=== PATIENT | female | born 1945 | race Caucasian/White ===

== ENCOUNTER 2018-11-10 11:37 | Inpatient (IN) | payer MEDICARE ==
[~2018-11-10] VITALS: Ht 167.6 cm; Wt 72.3 kg
--- NOTE | 2018-11-10 12:04 | NUR ---
relieving RN for lunch, labor relations manager has drawn blood, pt is resting quietly on gurney,
[2018-11-10 12:10] LABS: BASOPHILS % (AUTO) 0.9 % (0-1); EOSINOPHILS # (AUTO) 0.1 X10'3 (0-0.9); EOSINOPHILS % (AUTO) 2.6 % (0-6); HEMATOCRIT 41.6 % (35.0-45.0); HEMOGLOBIN 14.1 g/dl (12.0-16.0); LYMPHOCYTES # (AUTO) 1.5 X10'3 (1.1-4.8); LYMPHOCYTES % (AUTO) 29.6 % (21-51); MEAN CORPUSCULAR HEMOGLOBIN 31.3 PG (27.0-31.0); MEAN CORPUSCULAR HGB CONC 33.9 g/dL (33.0-36.5); MEAN CORPUSCULAR VOLUME 92.4 FL (78-98); MEAN PLATELET VOLUME 7.6 FL (7.4-10.4); MONOCYTES # (AUTO) 0.6 X10'3 (0-0.9); NEUTROPHILS # (AUTO) 2.9 X10'3 (1.8-7.7); NEUTROPHILS % (AUTO) 55.9 % (42-75); PLATELET COUNT 222 X10'3 (140-440); RED CELL DISTRIBUTION WIDTH 13.9 % (11.5-14.5); WHITE BLOOD COUNT 5.2 X10'3 (4.5-11.0)
--- NOTE | 2018-11-10 12:24 | NUR ---
Dr Vivas at bedside to eval pt, pt is 72 yo female c/o chest pain "burning...tightness" off and on x3 weeks, lasts a few seconds, radiates at times to neck and head, +SOB, no n/v, no diaphoresis, pt referred to ER for abn EKG taken for pre op, pt is calm and cooperative, resp even and unlabored, skin p/w/d
[2018-11-10 12:25] LABS: ALANINE AMINOTRANSFERASE 26 U/L (12-78); ALBUMIN 3.7 G/DL (3.4-5.0); ALKALINE PHOSPHATASE 64 IU/L (46-116); ANION GAP 7 (8-16); ASPARTATE AMINO TRANSFERASE 17 U/L (10-37); BILIRUBIN,TOTAL 0.3 MG/DL (0.1-1.0); BLOOD UREA NITROGEN 10 MG/DL (7-18); BUN/CREATININE RATIO 16.7 (6.6-38.0); CHLORIDE 100 MMOL/L (99-107); GLUCOSE 98 MG/DL (70-104); POTASSIUM 4.2 MMOL/L (3.5-5.1); SODIUM 136 MMOL/L (135-145); TOTAL CARBON DIOXIDE 29.1 MMOL/L (24-32); TOTAL PROTEIN 7.4 G/DL (6.4-8.2); eGFR > 90 ML/MIN
[2018-11-10 12:27] LABS: INR 2.6 INR; PARTIAL THROMBOPLASTIN TIME 38 SECONDS (22-32); PROTHROMBIN TIME 24.8 SECONDS (9.0-12.0)
[2018-11-10] MEDS ORDERED: aspirin 325mg tablet PO ONE (12:35)
--- NOTE | 2018-11-10 12:47 | NUR ---
Dr Ambrose at bedside to evaluate pt
--- NOTE | 2018-11-10 12:48 | NUR ---
report to Isabel OSEI
[2018-11-10] MEDS ORDERED: mag hydrox/Alum hydrox/simeth 30ml oral suspension PO PRN (13:05)
[2018-11-10] MEDS ORDERED: magnesium hydroxide 30ml (MOM) UD suspension PO PRN (13:05)
[2018-11-10] MEDS ORDERED: metoprolol tartrate 1mg/ml inj IV PRN (13:05)
[2018-11-10] MEDS ORDERED: aminophylline 250mg/10ml inj. IV PRN (13:05)
[2018-11-10] MEDS ORDERED: magnesium 2GM in 50ml NS 50 ML IV PRN (13:05)
[2018-11-10] MEDS ORDERED: magnesium 4gm in 100ml NS 100 ML IV PRN (13:05)
[2018-11-10] MEDS ORDERED: potassium Cl 40MEQ/NS 500ml 500 ML IV PRN ×2 (13:05)
[2018-11-10] MEDS ORDERED: HYDROcodone/acetaminophen 5mg/325mg tablet PO PRN (13:05)
[2018-11-10] MEDS ORDERED: acetaminophen 325mg tablet PO PRN (13:05)
[2018-11-10] MEDS ORDERED: regadenoson 0.4mg/5ml syringe IV PRN (13:05)
[2018-11-10] MEDS ORDERED: ondansetron/PF 4mg/2ml inj IV PRN (13:05)
[2018-11-10] MEDS ORDERED: magnesium Cl slow-release 64mg tablet PO PRN (13:05)
[2018-11-10] MEDS ORDERED: potassium Cl 20 mEq SR tablet PO PRN ×2 (13:05)
[2018-11-10] MEDS ORDERED: TRIA10.8 BOTHNARES (13:14)
[2018-11-10] MEDS ORDERED: TIOT18CA3 PO (13:14)
[2018-11-10] MEDS ORDERED: BACL10TA PO (13:14)
[2018-11-10] MEDS ORDERED: VENL37.55 PO (13:14)
[2018-11-10] MEDS ORDERED: ATOR20TA66 PO (13:14)
[2018-11-10] MEDS ORDERED: SOTA80TA PO (13:14)
[2018-11-10] MEDS ORDERED: WARF4TAB69 PO (13:14)
[2018-11-10] MEDS ORDERED: OMEG1CAP2 PO (13:14)
[2018-11-10] MEDS ORDERED: SELE200T25 PO (13:14)
[2018-11-10] MEDS ORDERED: GABA-532 PO (13:14)
[2018-11-10] MEDS ORDERED: WARF1TAB PO (13:14)
[2018-11-10] MEDS ORDERED: MONT10TA24 PO (13:14)
[2018-11-10] MEDS ORDERED: BIOT5CAP3 PO (13:14)
[2018-11-10 13:22] LABS: D-DIMER < 0.19 MG/L FEU (0-0.50)
[2018-11-10] MEDS: normal saline 1000ml 1,000 ML IV SCH (13:46)
[2018-11-10] MEDS: nitroGLYCERIN 0.4mg SUBLingual tab SL PRN (13:47)
[2018-11-10] MEDS: morphine 4 MG/ML inj SYRINge IV PRN (13:50)
--- NOTE | 2018-11-10 15:20 | NUR ---
REPORT ATTEMPTED, FARNAZ OLIVEIRA TO CALL BACK FOR REPORT.
--- NOTE | 2018-11-10 15:35 | NUR ---
Patient in room ED 9. I have received report from Isabel RN and had the opportunity to ask questions and assume patient care.
[2018-11-10 16:32] VITALS: BP 177/67
[2018-11-10 18:00] VITALS: BP 136/52
--- NOTE | 2018-11-10 18:41 | NUR ---
Problems reprioritized. Patient report given, questions answered & plan of care reviewed with JOSE C OSEI.
[2018-11-10] MEDS: acetaminophen 325mg tablet PO PRN (19:42)
[2018-11-10] MEDS: sotalol 80mg tablet PO SCH (19:42)
[2018-11-10] MEDS: heparin, porcine 5000 units/ml vial SQ SCH (21:05)
--- NOTE | 2018-11-10 21:08 | NUR ---
MD Vargas paged and notified that patient takes coumadin at home (which was not ordered here in hospital), but does have Heparin subq ordered for tonight. Labs reviewed with MD and orders to hold heparin and not add on home dose of coumadin as well in case a procedure is needed tomorrow.
[2018-11-10] MEDS: gabapentin 300mg capsule PO SCH (21:11)
[2018-11-10 23:00] VITALS: BP 114/69
[2018-11-10] MEDS ORDERED: diphenhydrAMINE 25mg capsule PO PRN (23:50)
[2018-11-11] VITALS (12 sets, daily range): BP systolic 115–161; BP diastolic 48–75
[2018-11-11] MEDS: morphine 4 MG/ML inj SYRINge IV PRN (01:49)
[2018-11-11] MEDS: nitroGLYCERIN 0.4mg SUBLingual tab SL PRN (02:01)
[2018-11-11] MEDS: acetaminophen 325mg tablet PO PRN (02:01)
[2018-11-11] MEDS: normal saline 1000ml 1,000 ML IV SCH (02:24)
[2018-11-11 05:58] LABS: BASOPHILS % (AUTO) 0.8 % (0-1); EOSINOPHILS # (AUTO) 0.2 X10'3 (0-0.9); EOSINOPHILS % (AUTO) 3.9 % (0-6); HEMATOCRIT 39.2 % (35.0-45.0); HEMOGLOBIN 13.1 g/dl (12.0-16.0); LYMPHOCYTES # (AUTO) 1.5 X10'3 (1.1-4.8); LYMPHOCYTES % (AUTO) 36.7 % (21-51); MEAN CORPUSCULAR HGB CONC 33.5 g/dL (33.0-36.5); MEAN CORPUSCULAR VOLUME 92.7 FL (78-98); MEAN PLATELET VOLUME 8.1 FL (7.4-10.4); MONOCYTES # (AUTO) 0.5 X10'3 (0-0.9); NEUTROPHILS # (AUTO) 1.8 X10'3 (1.8-7.7); NEUTROPHILS % (AUTO) 45.6 % (42-75); PLATELET COUNT 199 X10'3 (140-440); RED BLOOD COUNT 4.22 X10'6 (4.20-5.60); RED CELL DISTRIBUTION WIDTH 13.9 % (11.5-14.5); WHITE BLOOD COUNT 4.1 X10'3 (4.5-11.0)
[2018-11-11 06:07] LABS: ANION GAP 6 (8-16); BLOOD UREA NITROGEN 10 MG/DL (7-18); BUN/CREATININE RATIO 18.2 (6.6-38.0); CALCIUM 8.4 MG/DL (8.5-10.1); CHLORIDE 107 MMOL/L (99-107); CHOL/HDL RATIO 3.4 (0.00-4.99); CHOLESTEROL 169 MG/DL (0-200); CREATININE 0.55 MG/DL (0.40-0.90); GLUCOSE 89 MG/DL (70-104); HDL CHOLESTEROL 49 MG/DL (35-60); LDL CHOLESTEROL 99 MG/DL (50-100); MAGNESIUM 2.1 MG/DL (1.5-2.4); SODIUM 142 MMOL/L (135-145); TOTAL CARBON DIOXIDE 28.6 MMOL/L (24-32); TRIGLYCERIDES 108 MG/DL (20-135); eGFR > 90 ML/MIN
[2018-11-11 06:14] LABS: INR 2.2 INR; PROTHROMBIN TIME 21.4 SECONDS (9.0-12.0)
--- NOTE | 2018-11-11 06:47 | NUR ---
Patient in room PCU 3014A. I have received report from FARNAZ WOODALL and had the opportunity to ask questions and assume patient care.
[2018-11-11] MEDS ORDERED: K and/or MAG REPLACEMENT MC SCH (08:00)
[2018-11-11] MEDS ORDERED: atorvastatin 20mg tablet PO SCH (08:00)
[2018-11-11] MEDS ORDERED: montelukast 10mg tablet PO SCH (08:00)
[2018-11-11] MEDS: gabapentin 300mg capsule PO SCH ×2 (08:00→12:37)
[2018-11-11] MEDS ORDERED: venlafaxine XR 37.5mg cap (Q24H) PO SCH (08:00)
[2018-11-11] MEDS ORDERED: LORazepam 2 mg/ml vial IV ONE (09:10)
[2018-11-11] MEDS ORDERED: aminophylline inj. 10 ML IV ONE (10:16)
[2018-11-11] MEDS ORDERED: regadenoson 0.4mg/5ml syringe IV ONE (10:16)
[2018-11-11] MEDS: sotalol 80mg tablet PO SCH (12:35)
[2018-11-11] MEDS: heparin, porcine 5000 units/ml vial SQ SCH (12:40)
[2018-11-11] MEDS ORDERED: ALBU6.7H INH (13:42)
[2018-11-11] MEDS ORDERED: NITR0.4T48 SL (13:42)
--- NOTE | 2018-11-11 14:25 | NUR ---
PAGER ID: [phone] MESSAGE: [id number] pt Stephanie COLEMAN soonest follow up appointment was November 29, it was set for 0900. Pernell Hoyos
--- NOTE | 2018-11-11 15:29 | NUR ---
Patient discharged stable in no apparent distress with family at bedside, IV access discontinued and all belongings taken. Discharge prescriptions called into to [facility] in [place], [place].
--- NOTE | 2018-11-11 15:40 | NUR ---
[place]rientee documentation and medication administration: I have reviewed and agree with interventions, assessments performed and documented by FARNAZ Bloom. For this medication-pass time frame, medications were reviewed, dispensed, administered and documented per hospital policy by FARNAZ Bloom.
== END 2018-11-11 15:45 | disposition home or self-care (01) | DRG 206 ==
LOC: ER 11:37 → ED HOLD 13:04 → PCU 3S 15:50
PROVIDERS: ADMIT Internal Medicine; ATTEND Internal Medicine
PROC: 4A02XM4 Measurement of Cardiac Total Activity, External Approach (ICD-10-PCS; principal; 2018-11-11)
PROC: 3E033HZ Introduction of Radioactive Substance into Peripheral Vein, Percutaneous Approach (ICD-10-PCS; 2018-11-11)
DX: M94.0 Chondrocostal junction syndrome [Tietze] (principal); J44.9 Chronic obstructive pulmonary disease, unspecified; I10 Essential (primary) hypertension; F32.9 Major depressive disorder, single episode, unspecified; I45.10 Unspecified right bundle-branch block; E78.5 Hyperlipidemia, unspecified; G89.4 Chronic pain syndrome; I48.91 Unspecified atrial fibrillation; M20.40 Other hammer toe(s) (acquired), unspecified foot; M21.619 Bunion of unspecified foot; F41.9 Anxiety disorder, unspecified; Z88.2 Allergy status to sulfonamides; Z79.899 Other long term (current) drug therapy
CPT/HCPCS: 36415; 71045; 78452; 80048; 80053; 80061; 83735; 84484; 85025; 85379; 85610; 85730; 87070; 93005; 93017; 93306; 99285; A9500; G0378; J0280; J1644; J2060; J2270; J7030; Q0163

== ENCOUNTER 2018-12-27 05:15 | Day surgery (SDC) | payer MEDICARE ==
[2018-12-26 14:36] LABS: BASOPHILS % (AUTO) 1.1 % (0-1); EOSINOPHILS # (AUTO) 0.1 X10'3 (0-0.9); EOSINOPHILS % (AUTO) 2.7 % (0-6); HEMATOCRIT 41.7 % (35.0-45.0); HEMOGLOBIN 13.8 g/dl (12.0-16.0); LYMPHOCYTES # (AUTO) 1.5 X10'3 (1.1-4.8); MEAN CORPUSCULAR HGB CONC 33.1 g/dL (33.0-36.5); MEAN CORPUSCULAR VOLUME 93.7 FL (78-98); MEAN PLATELET VOLUME 8.1 FL (7.4-10.4); MONOCYTES # (AUTO) 0.6 X10'3 (0-0.9); MONOCYTES % (AUTO) 13.3 % (2-12); NEUTROPHILS % (AUTO) 46.9 % (42-75); PLATELET COUNT 218 X10'3 (140-440); RED BLOOD COUNT 4.45 X10'6 (4.20-5.60); RED CELL DISTRIBUTION WIDTH 14.1 % (11.5-14.5); WHITE BLOOD COUNT 4.3 X10'3 (4.5-11.0)
[2018-12-26 14:48] LABS: INR 1.2 INR; PARTIAL THROMBOPLASTIN TIME 28 SECONDS (22-32)
[2018-12-26 14:51] LABS: ALBUMIN 3.6 G/DL (3.4-5.0); ANION GAP 7 (8-16); BLOOD UREA NITROGEN 6 MG/DL (7-18); BUN/CREATININE RATIO 11.1 (6.6-38.0); CHLORIDE 104 MMOL/L (99-107); CREATININE 0.54 MG/DL (0.40-0.90); GLUCOSE 91 MG/DL (70-104); POTASSIUM 4.2 MMOL/L (3.5-5.1); SODIUM 140 MMOL/L (135-145); TOTAL CARBON DIOXIDE 28.6 MMOL/L (24-32); eGFR > 90 ML/MIN
[~2018-12-27] VITALS: Ht 167.6 cm; Wt 74.7 kg
[2018-12-27] VITALS (8 sets, daily range): BP systolic 118–140; BP diastolic 56–80
[~2018-12-27 05:15] MED LIST: ALBU6.7H INH; ATOR20TA66 PO; BACL10TA PO; BIOT5CAP3 PO; GABA-532 PO; MONT10TA24 PO; NITR0.4T48 SL; OMEG1CAP2 PO; SELE200T25 PO; SOTA80TA PO; TIOT18CA3 PO; TRIA10.8 BOTHNARES; VENL37.55 PO; WARF1TAB PO; WARF4TAB69 PO
[2018-12-27] MEDS ORDERED: diphenhydrAMINE 25mg capsule PO PRN (05:30)
[2018-12-27] MEDS ORDERED: normal saline 1,000 ML IV SCH ×2 (05:30→09:13)
[2018-12-27] MEDS ORDERED: LORazepam 0.5 MG tablet PO PRN (05:30)
[2018-12-27] MEDS ORDERED: LORA0.5T PO (06:16)
[2018-12-27] MEDS ORDERED: sumatriptan PO (06:16)
[2018-12-27] MEDS ORDERED: BUTA-281 PO (06:16)
[2018-12-27] MEDS ORDERED: ALBU2.5V12 NEB (06:16)
[2018-12-27] MEDS ORDERED: FLU VACC QUAD 2018(5 YR UP)/PF 60 MCG/0.5 ML SYRINGE IM ONE (07:05)
[2018-12-27] MEDS ORDERED: heparin 1,000unit/ml 10ml vial 10 ML ONE (07:59)
[2018-12-27] MEDS ORDERED: midazolam 2 mg/2 ml injection ONE (07:59)
[2018-12-27] MEDS ORDERED: iohexol 350 MG/1 ML 200ml bottle ONE (07:59)
[2018-12-27] MEDS ORDERED: fentaNYL/PF 50MCG/1 ML 2ML syringe ONE (07:59)
[2018-12-27] MEDS ORDERED: LIDOcaine 1% (10mg/ml)w/preservative injection 20ml MDV ONE (07:59)
[2018-12-27] MEDS ORDERED: HYDROcodone/acetaminophen 5mg/325mg tablet PO PRN (09:15)
[2018-12-27] MEDS ORDERED: HYDROcodone/acetaminophen 10/325mg tab PO PRN (09:15)
[2018-12-27] MEDS ORDERED: proCHLORperazine 10 MG/2 ml inj IV PRN (09:15)
[2018-12-27] MEDS ORDERED: ondansetron/PF 4mg/2ml inj IV PRN (09:15)
[2018-12-27] MEDS ORDERED: OXAZEpam 15mg capsule PO PRN (09:15)
== END 2018-12-27 12:10 | disposition home or self-care (01) ==
LOC: SSTAY O 05:15
PROVIDERS: ATTEND Internal Medicine Interventional Cardiology
DX: I25.10 Atherosclerotic heart disease of native coronary artery without angina pectoris (principal); E78.5 Hyperlipidemia, unspecified; J44.9 Chronic obstructive pulmonary disease, unspecified; I48.91 Unspecified atrial fibrillation; I48.0 Paroxysmal atrial fibrillation; Z87.891 Personal history of nicotine dependence; Z79.899 Other long term (current) drug therapy; Z88.2 Allergy status to sulfonamides
CPT/HCPCS: 36415; 80048; 85025; 85610; 85730; 93005; 93458; 99152; A6257; J1644; J2001; J2250; J3010; J7030; Q0163; Q2037; Q9967; A4620; C1769

== ENCOUNTER 2021-05-02 20:57 | Inpatient (IN) | payer MEDICARE, OTHER ==
[~2021-05-02] VITALS: Ht 167.6 cm; Wt 71.8 kg
[~2021-05-02 20:57] MED LIST changes: +ALBU2.5V12 NEB; -ALBU6.7H INH; +ASCO-134 PO; +ASPI81TA53 PO; -ATOR20TA66 PO; +BUTA-281 PO; +CHOL10006 PO; -MONT10TA24 PO; +MONT10TA32 PO; -NITR0.4T48 SL; +OMEG10006 PO; -OMEG1CAP2 PO; +PANT40TA54 PO; +PHYT100T PO; +ROSU20TA31 PO; -SELE200T25 PO; -SOTA80TA PO; +SOTA80TA73 PO; +SUMA50TA17 PO; -VENL37.55 PO; +VENL37.589 PO; -WARF1TAB PO
[2021-05-02 21:50] LABS: BASOPHILS # (AUTO) 0.1 X10'3 (0-0.2); BASOPHILS % (AUTO) 0.8 % (0-1); EOSINOPHILS # (AUTO) 0.3 X10'3 (0-0.9); EOSINOPHILS % (AUTO) 3.4 % (0-6); HEMATOCRIT 39.5 % (35.0-45.0); HEMOGLOBIN 13.1 g/dl (12.0-16.0); LYMPHOCYTES # (AUTO) 2.2 X10'3 (1.1-4.8); LYMPHOCYTES % (AUTO) 28.9 % (21-51); MEAN CORPUSCULAR HEMOGLOBIN 30.8 PG (27.0-31.0); MEAN CORPUSCULAR HGB CONC 33.2 g/dL (33.0-36.5); MEAN CORPUSCULAR VOLUME 92.9 FL (78-98); MEAN PLATELET VOLUME 7.8 FL (7.4-10.4); MONOCYTES # (AUTO) 0.9 X10'3 (0-0.9); MONOCYTES % (AUTO) 12.3 % (2-12); NEUTROPHILS # (AUTO) 4.1 X10'3 (1.8-7.7); NEUTROPHILS % (AUTO) 54.6 % (42-75); PLATELET COUNT 270 X10'3 (140-440); RED BLOOD COUNT 4.25 X10'6 (4.20-5.60); RED CELL DISTRIBUTION WIDTH 14.2 % (11.5-14.5); WHITE BLOOD COUNT 7.5 X10'3 (4.5-11.0)
[2021-05-02 22:11] LABS: ALANINE AMINOTRANSFERASE 26 U/L (12-78); ALBUMIN 3.8 G/DL (3.4-5.0); ALKALINE PHOSPHATASE 83 IU/L (46-116); ANION GAP 6 (8-16); ASPARTATE AMINO TRANSFERASE 16 U/L (10-37); BILIRUBIN,TOTAL 0.2 MG/DL (0.1-1.0); BLOOD UREA NITROGEN 11 MG/DL (7-18); BUN/CREATININE RATIO 16.7 (6.6-38.0); CALCIUM 8.6 MG/DL (8.5-10.1); CHLORIDE 103 MMOL/L (99-107); CREATININE 0.66 MG/DL (0.40-0.90); GLUCOSE 114 MG/DL (70-104); SODIUM 139 MMOL/L (135-145); TOTAL CARBON DIOXIDE 30.2 MMOL/L (24-32); TOTAL PROTEIN 7.5 G/DL (6.4-8.2); eGFR 87 ML/MIN
[2021-05-02 23:02] LABS: PARTIAL THROMBOPLASTIN TIME 38 SECONDS (22-32)
[2021-05-02] MEDS ORDERED: ketorolac tromethamine 15mg/ml inj. IV ONE (23:55)
[2021-05-02] MEDS ORDERED: acetaminophen 325mg tablet PO ONE (23:55)
[2021-05-03] MEDS ORDERED: acetaminophen 325mg tablet PO PRN ×2 (00:20)
[2021-05-03] MEDS ORDERED: normal saline 1000ml 1,000 ML IV SCH (00:20)
[2021-05-03] MEDS ORDERED: ondansetron/PF 4mg/2ml inj IV PRN (00:20)
[2021-05-03] MEDS ORDERED: morphine 2 MG/ML inj. syringe IV PRN ×2 (00:20)
[2021-05-03] MEDS ORDERED: mag hydrox/Alum hydrox/simeth 30ml oral suspension PO PRN (00:20)
[2021-05-03] MEDS ORDERED: ondansetron 4mg rapidly disintigrating tab PO PRN (00:20)
[2021-05-03] MEDS ORDERED: acetaminophen 650mg rectal suppository RC PRN (00:20)
[2021-05-03] MEDS ORDERED: diphenhydrAMINE 25mg capsule PO PRN (00:20)
[2021-05-03] MEDS ORDERED: HYDROcodone/acetaminophen 10/325mg tab PO PRN (00:20)
[2021-05-03] MEDS ORDERED: HYDROcodone/acetaminophen 5mg/325mg tablet PO PRN (00:20)
[2021-05-03] MEDS ORDERED: magnesium hydroxide 30ml (MOM) UD suspension PO PRN (00:20)
[2021-05-03] MEDS ORDERED: bisacodyl 10mg suppository rectal RC PRN (00:20)
[2021-05-03] MEDS ORDERED: HYDROmorphone inj. 0.5 MG/0.5 ML DISP.SYRIN IV PRN (00:20)
[2021-05-03] MEDS ORDERED: diphenhydrAMINE 50 mg/ml inj IV PRN (00:20)
[2021-05-03] MEDS ORDERED: metoprolol tartrate 1mg/ml inj IV PRN (00:25)
[2021-05-03] MEDS ORDERED: regadenoson 0.4mg/5ml syringe IV PRN (00:25)
[2021-05-03] MEDS ORDERED: nitroGLYCERIN 0.4mg SUBLingual tab SL PRN (00:25)
[2021-05-03] MEDS ORDERED: aminophylline 250mg/10ml inj. IV PRN (00:25)
[2021-05-03 01:05] LABS: C-REACTIVE PROTEIN 0.42 MG/DL (0.0-0.5)
[2021-05-03 03:12] LABS: LIPASE 334 U/L (73-393); MAGNESIUM 2.4 MG/DL (1.5-2.4); PHOSPHORUS 3.4 MG/DL (2.3-4.5)
[2021-05-03 03:19] LABS: HEMOGLOBIN A1C 6.3 % (4.5-6.2)
--- NOTE | 2021-05-03 07:20 | NUR ---
ATTEMPTED TO CALL REPORT ON PATIENT WITH PCU. NURSE IS UNABLE TO TAKE REPORT.
[2021-05-03] MEDS ORDERED: docusate sod 100mg capsule PO SCH (08:00)
[2021-05-03] MEDS ORDERED: lisinopril 10 MG tablet PO SCH (08:00)
--- NOTE | 2021-05-03 09:35 | NUR ---
REPORT TO FARNAZ MEZA ON PCU.
[2021-05-03 10:15] VITALS: BP 117/87
--- NOTE | 2021-05-03 11:53 | NUR ---
PAGER ID: [phone] MESSAGE: Room 3014B, Zeinab Brown. There are no D/C medications? Want her to continue her home medications? Thanks, Lisa [phone]
--- NOTE | 2021-05-03 12:05 | NUR ---
Per MD Pope Pt to continue all home medications.
--- NOTE | 2021-05-03 13:10 | NUR ---
Pt stable for D/C Pt stable for D/C, PIV and tele removed from pt - pt tolerated well. All D/C ppwk was reviewed with patient and spouse. No questions, comments, or concerns at this time. Education provided - pt verbalized understanding. No new RX prescribed. All personal belongings sent with patient. Pt was wheeled out to private vehicle where spouse was waiting.
[2021-05-03] MEDS ORDERED: temazepam 15mg capsule PO PRN (21:00)
== END 2021-05-03 13:10 | disposition home or self-care (01) | DRG 303 ==
LOC: ER 20:57 → ED HOLD 05-03 00:22 → PCU 3S 05-03 09:45
PROVIDERS: ADMIT Family Medicine; ATTEND Internal Medicine
PROC: C21YYZZ Planar Nuclear Medicine Imaging of Heart using Other Radionuclide (ICD-10-PCS; principal; 2021-05-03)
DX: I25.110 Atherosclerotic heart disease of native coronary artery with unstable angina pectoris (principal); I48.20 Chronic atrial fibrillation, unspecified; I50.32 Chronic diastolic (congestive) heart failure; E78.00 Pure hypercholesterolemia, unspecified; E78.5 Hyperlipidemia, unspecified; F32.9 Major depressive disorder, single episode, unspecified; G47.33 Obstructive sleep apnea (adult) (pediatric); G43.909 Migraine, unspecified, not intractable, without status migrainosus; G62.9 Polyneuropathy, unspecified; I11.0 Hypertensive heart disease with heart failure; J44.9 Chronic obstructive pulmonary disease, unspecified; Z79.01 Long term (current) use of anticoagulants; Z85.828 Personal history of other malignant neoplasm of skin; I25.2 Old myocardial infarction; Z90.49 Acquired absence of other specified parts of digestive tract; Z90.710 Acquired absence of both cervix and uterus; Z88.2 Allergy status to sulfonamides; Z79.899 Other long term (current) drug therapy
CPT/HCPCS: 36415; 71045; 78451; 80053; 83036; 83690; 83735; 83880; 84100; 84443; 84484; 85025; 85379; 85610; 85651; 85730; 86140; 93005; 99285; A9500; G0378

== ENCOUNTER 2022-12-02 14:42 | Day surgery (SDC) | payer MEDICARE, OTHER ==
[~2022-12-02] VITALS: Ht 167.6 cm; Wt 76.3 kg
[2022-12-02] VITALS (11 sets, daily range): BP systolic 127–208; BP diastolic 51–150
[~2022-12-02 14:42] MED LIST changes: +MONT-40 PO; -MONT10TA32 PO; -PANT40TA54 PO
[2022-12-02] MEDS ORDERED: normal saline 1000ml 1,000 ML IV SCH (15:10)
[2022-12-02] MEDS ORDERED: MIDAZolam 1mg/ml 10ml vial IV ONE (15:10)
[2022-12-02] MEDS ORDERED: fentaNYL/PF 50MCG/1 ML 2ML syringe IV ONE (15:10)
[2022-12-02] MEDS ORDERED: WARF10TA45 PO ×2 (15:28)
[2022-12-02] MEDS ORDERED: ROSU40TA PO (15:34)
[2022-12-02] MEDS ORDERED: TIOT4MIS3 INH (15:34)
[2022-12-02] MEDS ORDERED: UBID100C16 PO (15:43)
[2022-12-02] MEDS ORDERED: SOTA80TA73 PO (15:44)
[2022-12-02] MEDS ORDERED: ASPI81TA52 PO (15:47)
== END 2022-12-02 18:45 | disposition home or self-care (01) ==
LOC: SSTAY O 14:42 → EDSTATUS 16:00 → SSTAY O 18:45
PROVIDERS: ATTEND Student in an Organized Health Care Education/Training Program
DX: I48.0 Paroxysmal atrial fibrillation (principal); Z79.899 Other long term (current) drug therapy; I25.10 Atherosclerotic heart disease of native coronary artery without angina pectoris; E78.5 Hyperlipidemia, unspecified; J44.9 Chronic obstructive pulmonary disease, unspecified; Z79.01 Long term (current) use of anticoagulants
CPT/HCPCS: 93312; J2250; J3010; J7030

== ENCOUNTER 2022-12-26 13:20 | Emergency (ER) | payer MEDICARE, OTHER ==
[~2022-12-26] VITALS: Ht 167.6 cm; Wt 72.0 kg
[~2022-12-26 13:20] MED LIST changes: -ALBU2.5V12 NEB; -ASPI81TA53 PO; -BACL10TA PO; +BIOT1CAP3 PO; -BIOT5CAP3 PO; +FURO20TA4 PO; +POTA-206 PO; +PSYL0.4C2 PO; -ROSU20TA31 PO; +ROSU40TA PO; -TIOT18CA3 PO; +TIOT4MIS3 INH; -TRIA10.8 BOTHNARES; +UBID100C16 PO; +WARF10TA45 PO; -WARF4TAB69 PO
[2022-12-26 14:09] LABS: BASOPHILS # (AUTO) 0.1 X10'3 (0-0.2); BASOPHILS % (AUTO) 0.7 % (0-1); EOSINOPHILS # (AUTO) 0.3 X10'3 (0-0.9); EOSINOPHILS % (AUTO) 2.9 % (0-6); HEMATOCRIT 35.5 % (35.0-45.0); HEMOGLOBIN 11.5 g/dl (12.0-16.0); LYMPHOCYTES # (AUTO) 1.8 X10'3 (1.1-4.8); LYMPHOCYTES % (AUTO) 15.4 % (21-51); MEAN CORPUSCULAR HEMOGLOBIN 29.6 PG (27.0-31.0); MEAN CORPUSCULAR HGB CONC 32.4 g/dL (33.0-36.5); MEAN CORPUSCULAR VOLUME 91.2 FL (78-98); MEAN PLATELET VOLUME 7.9 FL (7.4-10.4); MONOCYTES % (AUTO) 8.5 % (2-12); NEUTROPHILS # (AUTO) 8.7 X10'3 (1.8-7.7); NEUTROPHILS % (AUTO) 72.5 % (42-75); PLATELET COUNT 279 X10'3 (140-440); RED BLOOD COUNT 3.89 X10'6 (4.20-5.60); RED CELL DISTRIBUTION WIDTH 14.2 % (11.5-14.5)
[2022-12-26 14:12] LABS: ALANINE AMINOTRANSFERASE 18 U/L (12-78); ALBUMIN 3.3 G/DL (3.4-5.0); ALBUMIN/GLOBULIN RATIO 0.9 (1.1-1.5); ALKALINE PHOSPHATASE 80 IU/L (46-116); ANION GAP 7 (8-16); ASPARTATE AMINO TRANSFERASE 23 U/L (10-37); BILIRUBIN,TOTAL 0.3 MG/DL (0.1-1.0); BLOOD UREA NITROGEN 5 MG/DL (7-18); BUN/CREATININE RATIO 9.3 (10.0-20.0); CALCIUM 8.3 MG/DL (8.5-10.1); CHLORIDE 99 MMOL/L (99-107); CREATININE 0.54 MG/DL (0.40-0.90); GLUCOSE 97 MG/DL (70-104); LIPASE < 50 U/L (73-393); POTASSIUM 3.7 MMOL/L (3.5-5.1); SODIUM 133 MMOL/L (135-145); TOTAL CARBON DIOXIDE 27.3 MMOL/L (24-32); TOTAL PROTEIN 6.9 G/DL (6.4-8.2); eGFR > 90 ML/MIN
[2022-12-26 14:32] LABS: CLARITY,URINE CLOUDY (Clear); COLOR,URINE YELLOW (Yellow); GLUCOSE, URINE NEGATIVE (Neg); KETONES,URINE NEGATIVE (Neg); LEUKOCYTE ESTERASE ,URINE LARGE (Neg); NITRITES, URINE NEGATIVE (Neg); OCCULT BLOOD,URINE LARGE (Neg); PROTEIN,URINE NEGATIVE (Neg); UROBILINOGEN,URINE 0.2 E.U/dL (0.2-1.0)
[2022-12-26 14:38] LABS: UA COLLECTION TYPE CLN CATCH MIDSTREAM
[2022-12-26 14:39] LABS: BACTERIA,URINE 1+ /HPF (Neg); RBC,URINE 0-2 /HPF (0-2); SQUAMOUS EPITHELIAL CELL,UR FEW /LPF (FEW); WBC CLUMPS,URINE MANY /HPF (NEGATIVE); WBC,URINE TNTC /HPF (0-4)
[2022-12-26] MEDS ORDERED: CIPR-259 PO (14:59)
[2022-12-26] MEDS: CefTRIAXone 1000mg IM Kit (w/lidocaine diluent) IM ONE ×2 (15:25→15:26)
[2022-12-26 15:26] VITALS: BP 145/70
[2022-12-26] MEDS ORDERED: PHEN-716 PO (15:36)
== END 2022-12-26 15:40 | disposition home or self-care (01) ==
LOC: ER 13:21
DX: N10 Acute pyelonephritis (principal); R31.0 Gross hematuria; Z79.01 Long term (current) use of anticoagulants; E78.00 Pure hypercholesterolemia, unspecified; I50.9 Heart failure, unspecified; J44.9 Chronic obstructive pulmonary disease, unspecified; Z88.2 Allergy status to sulfonamides; Z90.49 Acquired absence of other specified parts of digestive tract; Z90.710 Acquired absence of both cervix and uterus
CPT/HCPCS: 36415; 80053; 81001; 83690; 85025; 87088; 96372; 99283; J0696

== ENCOUNTER 2023-01-19 12:59 | Day surgery (SDC) | payer MEDICARE, OTHER ==
[2023-01-19] VITALS (10 sets, daily range): BP systolic 118–161; BP diastolic 50–94
[~2023-01-19] VITALS: Ht 167.6 cm; Wt 75.5 kg
[~2023-01-19 12:59] MED LIST changes: +CIPR-259 PO; +PHEN-716 PO
[2023-01-19] MEDS ORDERED: normal saline 1000ml 1,000 ML IV SCH (13:30)
[2023-01-19] MEDS ORDERED: MIDAZolam 1mg/ml 10ml vial IV ONE (13:30)
[2023-01-19] MEDS ORDERED: fentaNYL/PF 50MCG/1 ML 2ML syringe IV ONE (13:30)
[2023-01-19 14:03] LABS: BASOPHILS # (AUTO) 0.1 X10'3 (0-0.2); EOSINOPHILS # (AUTO) 0.3 X10'3 (0-0.9); EOSINOPHILS % (AUTO) 4.2 % (0-6); HEMATOCRIT 35.8 % (35.0-45.0); HEMOGLOBIN 11.9 g/dl (12.0-16.0); LYMPHOCYTES # (AUTO) 2.3 X10'3 (1.1-4.8); LYMPHOCYTES % (AUTO) 37.2 % (21-51); MEAN CORPUSCULAR HEMOGLOBIN 29.6 PG (27.0-31.0); MEAN CORPUSCULAR HGB CONC 33.1 g/dL (33.0-36.5); MEAN CORPUSCULAR VOLUME 89.3 FL (78-98); MEAN PLATELET VOLUME 7.9 FL (7.4-10.4); MONOCYTES # (AUTO) 0.8 X10'3 (0-0.9); MONOCYTES % (AUTO) 13.2 % (2-12); NEUTROPHILS # (AUTO) 2.7 X10'3 (1.8-7.7); NEUTROPHILS % (AUTO) 44.4 % (42-75); PLATELET COUNT 245 X10'3 (140-440); RED BLOOD COUNT 4.01 X10'6 (4.20-5.60); RED CELL DISTRIBUTION WIDTH 14.1 % (11.5-14.5); WHITE BLOOD COUNT 6.1 X10'3 (4.5-11.0)
[2023-01-19] MEDS ORDERED: TIOT4MIS3 (14:04)
[2023-01-19] MEDS ORDERED: WARF1TAB83 (14:04)
[2023-01-19] MEDS ORDERED: BUTA1TAB54 (14:04)
[2023-01-19] MEDS ORDERED: ROSU20TA31 (14:04)
[2023-01-19] MEDS ORDERED: SOTA80TA73 PO (14:05)
[2023-01-19 14:15] LABS: ALBUMIN 3.3 G/DL (3.4-5.0); ANION GAP 5 (8-16); BLOOD UREA NITROGEN 10 MG/DL (7-18); CALCIUM 8.5 MG/DL (8.5-10.1); CHLORIDE 104 MMOL/L (99-107); GLUCOSE 85 MG/DL (70-104); POTASSIUM 4.2 MMOL/L (3.5-5.1); SODIUM 139 MMOL/L (135-145); TOTAL CARBON DIOXIDE 30.5 MMOL/L (24-32); eGFR > 90 ML/MIN
== END 2023-01-19 16:10 | disposition home or self-care (01) ==
LOC: SSTAY O 12:59
PROVIDERS: ATTEND Student in an Organized Health Care Education/Training Program
DX: Z45.09 Encounter for adjustment and management of other cardiac device (principal); J44.9 Chronic obstructive pulmonary disease, unspecified; I25.2 Old myocardial infarction; I10 Essential (primary) hypertension; I48.91 Unspecified atrial fibrillation; I25.10 Atherosclerotic heart disease of native coronary artery without angina pectoris; Z79.899 Other long term (current) drug therapy; Z88.2 Allergy status to sulfonamides
CPT/HCPCS: 36415; 80048; 85025; 85610; 93312; 93325; J2250; J3010; A4620

== ENCOUNTER 2025-02-22 17:54 | Observation (INO) | payer MEDICARE, OTHER ==
[~2025-02-22] VITALS: Ht 165.1 cm; Wt 64.1 kg
[~2025-02-22 17:54] MED LIST changes: -ASCO-134 PO; +ASPI81TA53 PO; -BIOT1CAP3 PO; -BUTA-281 PO; +BUTA1TAB48; -CHOL10006 PO; -CIPR-259 PO; -FURO20TA4 PO; +PANT40TA54 PO; -PHEN-716 PO; -PHYT100T PO; -POTA-206 PO; -PSYL0.4C2 PO; +ROSU20TA98; -ROSU40TA PO; +TICA90TA PO; +TIOT4MIS3; -TIOT4MIS3 INH; -UBID100C16 PO; -VENL37.589 PO; -WARF10TA45 PO
--- NOTE | 2025-02-22 18:05 | Physician Documentation ---
History of Present Illness ~ Stated Complaint: CHEST PAIN Time Seen by MD: 21:05 Primary Medical Doctor: [facility] HPI 79 yo female had SC Wednesday and heart catheterization Wednesday by Dr. Shah. Patient will see Dr. Shah on Wednesday. Patient saw primary care today and is in the emergency department due to new onset palpitations and irregular heart rate earlier today she got up from a nap to use the restroom. Medication Reconciliation Allergies: Coded Allergies: Sulfa (Sulfonamide Antibiotics) (Verified Allergy, Unknown, STOMACH CRAMPS, FEVER, 02/17/25) adhesive (Verified Allergy, Unknown, BLISTERS, 02/17/25) Scheduled Aspirin (Children's Aspirin), 81 MG PO DAILY Butalb/Acetaminophen/Caffeine (Qggnfd-Fphcglus-Pjaw 50-325-40), 1 q4hrs prn, (Reported) Gabapentin (Gabapentin), 1 CAP PO BID, (Reported) Montelukast Sodium (Montelukast Sodium), 1 TAB PO HS, (Reported) [place]-3 Fatty Acids ([place]-3), 2 CAP PO HS, (Reported) Pantoprazole Sodium (Pantoprazole Sodium), 40 MG PO BKF Rosuvastatin Calcium (Rosuvastatin Calcium), 2 DAILY, (Reported) Sotalol Hcl* (Betapace*), 0.5 TAB PO Q12H, (Reported) Ticagrelor (Brilinta), 90 MG PO BID Scheduled PRN Sumatriptan Succinate (Sumatriptan Succinate), 1 TAB PO DAILY PRN for headache, (Reported) Miscellaneous Medications Tiotropium Br/Olodaterol HCl (Stiolto Respimat Inhal [place]), (Reported) Discontinued Medications Venlafaxine Hcl (Venlafaxine Hcl Er), 1 CAP PO HS, (Reported) Discontinued Reason: patient no longer taking Warfarin Sodium (Warfarin Sodium), 5 DAILY, (Reported) Discontinued Reason: patient no longer taking Past Medical History Past Medical History: Atrial Fibrillation, Congestive Heart Failure, High Cholesterol, Heart Valve Disease, Myocardial Infarction, Valve Insuffciency, COPD, Sleep Apnea, Cholelithiasis, GI Bleed, *MUSCULOSKELETAL*, Basal Cell Past Surgical History: cholecystectomy, hysterectomy Patient History: FH: cancer Brother , Alcohol Use: None Drug Use: none Lives with: Spouse Lives In: Home Occupation: retired Review of [email or web address] All Other Systems at this time: Reviewed and Negative Cardiovascular: Reports: see HPI Physical Exam General Appearance: alert, WD/WN, no apparent distress Respiratory: lungs clear, no respiratory distress Chest: no accessory muscle use Cardiovascular: normal peripheral pulses, no edema, irregularly irregular Progress Results/Orders Results/Orders Orders - UNA ZHAO 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 (02/22/25 21:29) Fill Out Med Reconciliation (02/22/25 21:29) Vital Signs 02/22/25 02/22/25 02/22/25 18:01 20:37 20:37 Temp 98.3 Pulse 109 67 Resp 16 13 17 B/P (MAP) 127/79 112/52 (72) Pulse Ox 98 99 O2 Flow Rate 0 Laboratory Tests Test 02/22/25 18:14 02/22/25 20:23 02/22/25 21:19 White Blood Count 9.3 Red Blood Count 4.61 Hemoglobin 14.7 Hematocrit 42.3 Mean Corpuscular Volume 91.7 Mean Corpuscular Hemoglobin 31.8 H Mean Corpuscular Hemoglobin Concent 34.7 Red Cell Distribution Width 13.6 Platelet Count 244 Mean Platelet Volume 8.0 Neutrophils (%) (Auto) 62.4 Lymphocytes (%) (Auto) 24.0 Monocytes (%) (Auto) 10.1 Eosinophils (%) (Auto) 2.9 Basophils (%) (Auto) 0.6 Neutrophils # (Auto) 5.8 Lymphocytes # (Auto) 2.2 Monocytes # (Auto) 0.9 Eosinophils # (Auto) 0.3 Basophils # (Auto) 0.1 CBC Comment Sodium Level 129 L Potassium Level 3.5 Chloride Level 97 L Carbon Dioxide Level 20.5 L Anion Gap 12 Blood Urea Nitrogen 7 Creatinine 0.45 Estimated GFR/1.73 m2 > 90 BUN/Creatinine Ratio 15.6 Glucose Level 106 H Calcium Level 8.7 Troponin I High Sensitivity 243 *H 224 *H 233 *H Pro-B-Type Natriuretic Peptide 3517 H Albumin 3.3 L Chemistry Comments Troponin I High Sens Percent Delta 7 4 Troponin I Hi Sens Absolute Change -19 9 EKG/XRAY/CT/US/VASC/MRI EKG : Intepreting Monitor?: Yes Indication: chest pain EKG Rate: 103 EKG: a fib Dunn: other Additional Comment Atrial fibrillation 103 beats per minute no acute ST-T abnormalities Chest X-Ray : Additional Comments EXAM: DI CHEST,SINGLE VIEW TECHNIQUE: Single frontal chest radiograph CLINICAL HISTORY: CP COMPARISON: DI CHEST,SINGLE VIEW on DOS: 02/17/25, CHEST,SINGLE VIEW on DOS: 05/02/21, CHEST,SINGLE VIEW on DOS: 02/18/21 Findings/Impression: Frontal chest radiograph demonstrates no acute osseous or superficial soft tissu e abnormalities. The trachea is midline. The cardiac silhouette and mediastinum are within normal limits. No pneumothorax, pleural effusions, or consolidations. Heart Score: Heart Score Response (Comments) Value History Moderate Suspicious 1 EKG N/A 0 Age >65 2 Risk Factors >3 or Hx ASHD 2 Troponin >3 x's Normal limit 2 Total 7 Medical Decision Making Additional info obtained from: old records Findings Due to patient's history as well as demographics [place] of town. Elevated troponins discussed with the patient admission for close monitoring and further evaluation of her palpitations. Differential Dx:Considerations: Include: angina, chest wall pain, myocardial infarction Departure Time of Disposition: 21:45 Disposition: 09 ADMITTED INPATIENT Admitted to Inpatient Unit: to hospitalist Impression: Primary Impression: Palpitations Additional Impressions: Atrial fibrillation Recent heart attack Elevated troponin Condition: Fair Referrals: NO PRIMARY CARE PROVIDER (PCP) Education Educated: Patient, Family Educated regarding: diagnosis, treatment, need for follow up Signature Scribe Signature: No scribe Attestation: The note accurately reflects work and decisions made by me.Una GAFFNEY 02/22/25 21:37 NUA ZHAO NP Feb 22, 2025 18:04
--- NOTE | 2025-02-22 18:08 | ELECTROCARDIOGRAPH REPORT ---
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 Sacha Mckinney Measurements Intervals [place] Rate: 103 P: 0 OK: 0 QRS: 94 QRSD: 148 T: 7 QT: 362 QTc: 474 Interpretive Statements Atrial fibrillation RBBB and LPFB Electronically Signed On 02-23-2025 18:22:[address] Sacha Mckinney Please click the below link to view image of tracing.
[2025-02-22 18:29] LABS: BASOPHILS # (AUTO) 0.1 X10'3 (0-0.2); BASOPHILS % (AUTO) 0.6 % (0-1); EOSINOPHILS # (AUTO) 0.3 X10'3 (0-0.9); EOSINOPHILS % (AUTO) 2.9 % (0-6); HEMATOCRIT 42.3 % (35.0-45.0); HEMOGLOBIN 14.7 g/dl (12.0-16.0); LYMPHOCYTES # (AUTO) 2.2 X10'3 (1.1-4.8); MEAN CORPUSCULAR HEMOGLOBIN 31.8 PG (27.0-31.0); MEAN CORPUSCULAR HGB CONC 34.7 g/dL (33.0-36.5); MEAN CORPUSCULAR VOLUME 91.7 FL (78-98); MONOCYTES # (AUTO) 0.9 X10'3 (0-0.9); MONOCYTES % (AUTO) 10.1 % (2-12); NEUTROPHILS # (AUTO) 5.8 X10'3 (1.8-7.7); NEUTROPHILS % (AUTO) 62.4 % (42-75); PLATELET COUNT 244 X10'3 (140-440); RED BLOOD COUNT 4.61 X10'6 (4.20-5.60); RED CELL DISTRIBUTION WIDTH 13.6 % (11.5-14.5); WHITE BLOOD COUNT 9.3 X10'3 (4.5-11.0)
--- NOTE | 2025-02-22 18:39 | RADIOLOGY REPORT ---
EXAM: DI CHEST,SINGLE VIEW TECHNIQUE: Single frontal chest radiograph CLINICAL HISTORY: CP COMPARISON: DI CHEST,SINGLE VIEW on DOS: 02/17/25, CHEST,SINGLE VIEW on DOS: 05/02/21, CHEST,SINGLE VIEW on DOS: 02/18/21 Findings/Impression: Frontal chest radiograph demonstrates no acute osseous or superficial soft tissue abnormalities. The trachea is midline. The cardiac silhouette and mediastinum are within normal limits. No pneumothorax, pleural effusions, or consolidations.
[2025-02-22 18:52] LABS: ALBUMIN 3.3 G/DL (3.4-5.0); ANION GAP 12 (8-16); BLOOD UREA NITROGEN 7 MG/DL (7-18); BUN/CREATININE RATIO 15.6 (10.0-20.0); CALCIUM 8.7 MG/DL (8.5-10.1); CHLORIDE 97 MMOL/L (99-107); CREATININE 0.45 MG/DL (0.40-0.90); GLUCOSE 106 MG/DL (70-104); POTASSIUM 3.5 MMOL/L (3.5-5.1); PRO BRAIN NATRIURETIC PEPTIDE 3517 PG/ML (0-450); SODIUM 129 MMOL/L (135-145); TOTAL CARBON DIOXIDE 20.5 MMOL/L (24-32); eCRCL 90 ML/MIN; eGFR > 90 ML/MIN
--- NOTE | 2025-02-22 22:00 | HISTORY AND PHYSICAL-Residence ---
History & Physical Providers to Resident Creating Document: MISHA BASS RES ~ History of Present Illness Primary Medical Doctor: [facility] History of Present Illness Entered by mistake. Allergies: Coded Allergies: Sulfa (Sulfonamide Antibiotics) (Verified Allergy, Unknown, STOMACH CRAMPS, FEVER, 02/17/25) adhesive (Verified Allergy, Unknown, BLISTERS, 02/17/25) Home Medications Home Medications Active Pantoprazole Sodium 40 Mg Tablet.dr 40 Mg PO BKF 30 Days Children's Aspirin (Aspirin) 81 Mg Tab.chew 81 Mg PO DAILY 30 Days Brilinta (Ticagrelor) 90 Mg Tablet 90 Mg PO BID 30 Days Continue one tablet twice daily for 12 months Reported Betapace* (Sotalol HCl) 80 Mg Tablet 0.5 Tab PO Q12H Stiolto Respimat Inhal [place] (Tiotropium Br/Olodaterol HCl) 4 Gm Mist.inhal Rosuvastatin Calcium 20 Mg Tablet 2 DAILY Pozjjd-Lcjjfntl-Uerj 50-325-40 (Acetaminophen/Butalbital/Caffeine) 1 Each Tablet 1 Q4HRS PRN [place]-3 ([place]-3 Fatty Acids) 1,000 Mg Capsule 2 Cap PO HS 30 Days Sumatriptan Succinate 50 Mg Tablet 1 Tab PO DAILY PRN MRX1 IN 2 HR Gabapentin 300 Mg Capsule 1 Cap PO BID Montelukast Sodium 10 Mg Tablet 1 Tab PO HS 30 Days Family History Family History: FH: cancer Brother , Past Social History Smoking: Secondhand Alcohol Use: None Drug Use: None Lives with: Spouse Lives In: Home Occupation: retired ROS All Other Systems: Reviewed and Negative Cardiovascular: Reports: see HPI Exam Vitals: Vital Signs Date Time Temp Pulse Resp B/P (MAP) Pulse Ox O2 Delivery O2 Flow Rate FiO2 02/22/25 20:37 17 02/22/25 20:37 67 112/52 (72) 99 02/22/25 18:01 98.3 0 Diagnostic Data Last Recorded Lab Results: 02/22/25181302/22/251813 Date of Service: Feb 22, 2025 Billing Provider: LUCAS SALAS Jr., VENKATESH, MAYELA Feb 22, 2025 22:00
[2025-02-22] MEDS ORDERED: acetaminophen 325mg tablet PO PRN (23:55)
[2025-02-22] MEDS ORDERED: magnesium hydroxide 30ml (MOM) UD suspension PO PRN (23:55)
[2025-02-22] MEDS ORDERED: potassium Cl 40MEQ/1/2NS 520ml 520 ML IV PRN (23:55)
[2025-02-22] MEDS ORDERED: magnesium Cl slow-release 64mg tablet PO PRN (23:55)
[2025-02-22] MEDS ORDERED: ondansetron/PF 4mg/2ml inj IV PRN (23:55)
[2025-02-22] MEDS ORDERED: magnesium sulf-water 4G/100mL 100 ML IV PRN (23:55)
[2025-02-22] MEDS ORDERED: potassium Cl 20 mEq SR tablet PO PRN (23:55)
[2025-02-22] MEDS ORDERED: magnesium sulf-water 2g/50mL 50 ML IV PRN (23:55)
[2025-02-23] MEDS ORDERED: ASPI-1265 PO (01:33)
[2025-02-23] MEDS ORDERED: PANT-47 PO (01:33)
[2025-02-23] MEDS ORDERED: TICA90TA2 PO (01:33)
--- NOTE | 2025-02-23 01:58 | HISTORY AND PHYSICAL-Residence ---
History & Physical Providers to CC Resident Creating Document: CORBIN LEE RES ~ History of Present Illness Primary Medical Doctor: [facility] Reason for Admit\Complaint: Palpitation History of Present Illness 79 years old female with past medical history of atrial fibrillation, status post Watchman, CHF hyperlipidemia, chronic bronchitis, recent NSTEMI underwent RCA stenting in 02/17/25 presented to the ED with complaint of shortness of breaths palpitation. Patient reported usually her heart rate is around 80 but today it was 115, she usually take sotalol 40 b.i.d. however after this episode she took 80 mg sotalol however she reported she did not feel good and the heart rate was about 105. She also reported heart racing and shortness of breaths called EMS and they transfer patient to the ED. she denied chest pain shortness of breaths lightheaded vision change or any neurological symptoms. On arrival the heart rate was 100 and gradually goes down to 80. She denied any fever chills cough abdominal pain or any other related symptoms. She also had history of dysphagia and weight loss and recently is following GI specialist Allergies: Coded Allergies: Sulfa (Sulfonamide Antibiotics) (Verified Allergy, Unknown, STOMACH CRAMPS, FEVER, 02/17/25) adhesive (Verified Allergy, Unknown, BLISTERS, 02/17/25) Home Medications Home Medications Active Reported Brilinta (Ticagrelor) 90 Mg Tablet 90 Mg PO BID Do not stop medication unless instructed by prescriber. Must be on aspirin as well. PROTONIX tablet (Pantoprazole Sodium) 40 Mg Tablet.dr 1 Tab PO DAILY 30 Days Aspirin 81 Mg Tab.chew 1 Tab PO DAILY 30 Days Betapace* (Sotalol HCl) 80 Mg Tablet 0.5 Tab PO Q12H Stiolto Respimat Inhal [place] (Tiotropium Br/Olodaterol HCl) 4 Gm Mist.inhal Rosuvastatin Calcium 20 Mg Tablet 2 DAILY Ibrwjg-Wyzydrdl-Hgbw 50-325-40 (Acetaminophen/Butalbital/Caffeine) 1 Each Tablet 1 Q4HRS PRN [place]-3 ([place]-3 Fatty Acids) 1,000 Mg Capsule 2 Cap PO HS 30 Days Sumatriptan Succinate 50 Mg Tablet 1 Tab PO DAILY PRN MRX1 IN 2 HR Gabapentin 300 Mg Capsule 1 Cap PO BID Montelukast Sodium 10 Mg Tablet 1 Tab PO HS 30 Days Past Medical History Past Medical History Atrial fibrillation status post Watchman CHF with preserved ejection fraction CAD status post stent in 02/17/2025 Dysphagia/weight loss Chronic bronchitis Family History Family History: FH: cancer (bone cancer in father) Brother , FH: heart disease (Father) Past Social History Smoking: Non-Smoker Alcohol Use: None Drug Use: None Lives with: Spouse Lives In: Home Occupation: retired ROS ROS The history of present illness included a review of system, which yielded relevant positives and negatives Cardiovascular: Reports: see HPI Exam Vitals: Vital Signs Date Time Temp Pulse Resp B/P (MAP) Pulse Ox O2 Delivery O2 Flow Rate FiO2 02/23/25 01:25 83 02/23/25 00:52 99 Room Air* 0 21 02/23/25 00:50 17 112/53 (72) 02/22/25 18:01 98.3 General: General: Awake and Alert, no acute distress. HEENT: Conjunctiva pink, Sclera clear, Mucus Membranes moist. Neck: Supple without masses and tenderness. Resp: Lungs clear to auscultation bilaterally. Heart: Regular rate and rhythm, normal S1 and S2 without murmur, rub or gallop. Abdomen: Soft and non tender no organomegaly Extremities: No cyanosis,clubbing or edema. Skin: Warm and Dry. Neurological: Speech is clear, alert, and oriented x 4, no gross neurological deficits Diagnostic Data Last Recorded Lab Results: 02/22/25181302/22/251813 Advance Care Planning Advanced Care plannin - 30 Minutes Additional Plan 79 years old female with history of NSTEMI status post RCA stenting, atrial fibrillation status post Watchman, CHF with preserved ejection fraction chronic bronchitis presented to the ED due to palpitation and shortness of breaths Atrial fibrillation with RVR Palpitation/shortness of breath Patient had history of AFib and usually the heart rate is around 80, today she reported palpitation shortness of breaths with heart rate of 115, take two sotalol and came to our hospital patient lives for from our hospital and not feeling safe to go home at this time. Heart rate in our hospital was 105 gradually goes down to 80 EKG showed: Chest x-ray showed: No acute abnormality We will continue sotalol 40 b.i.d. Patient underwent Watchman procedure three years ago Cardiology consult in a.m. Coronary artery disease status post RCA stenting by Dr. Harley Shah Type 4b myocardial infarction Elevated troponin Troponin is trending down We will continue aspirin and Brilinta Hyponatremia: Improved Sodium 129, Serum osmolality urine osmolality did not ordered in ED Fluid restriction CHF with preserved ejection fraction Elevated proBNP: 3517 02/18/25: Echo: Normal LV size and wall thickness. Overall systolic function is midly reduced. Multisegmental wall motion abnormalities. LVEF is 50%.. RV is normal size and function. RVSP is estimated at 40 mmHg. Trileaflet AV appears mildly sclerotic without stenosis, no insufficiency. Mild MV annular calcification without stenosis. Mild regurgitation. TV appears structurally normal with trace regurgitation. Normal pericardium. No effusion. Patient is following Dr. Shah, will benefit from SGLT2 inhibitor and GDM T optimization Consult her Cardiology in a.m. 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 Attestation of HP only, care immediately directed to hospitalist team - Obs. Prox afib - Trops neg - cont sotolol - Maribel dvt proph - DC in am Patient seen through remote audiovisual assessment through HIPAA compliant setup. All labs, flowsheets, and images reviewed. Date of Service: Feb 23, 2025 Billing Provider: LUCAS SALAS Jr., ELAHE, RES Feb 23, 2025 01:57 LUCAS SALAS Jr. DO Feb 23, 2025 04:40
[2025-02-23] MEDS: ticagrelor 90mg tablet PO ONE (02:01)
[2025-02-23 03:16] LABS: BASOPHILS # (AUTO) 0.1 X10'3 (0-0.2); BASOPHILS % (AUTO) 0.9 % (0-1); EOSINOPHILS # (AUTO) 0.2 X10'3 (0-0.9); EOSINOPHILS % (AUTO) 2.4 % (0-6); HEMATOCRIT 41.3 % (35.0-45.0); LYMPHOCYTES % (AUTO) 26.5 % (21-51); MEAN CORPUSCULAR HEMOGLOBIN 31.1 PG (27.0-31.0); MEAN CORPUSCULAR HGB CONC 33.8 g/dL (33.0-36.5); MEAN CORPUSCULAR VOLUME 91.9 FL (78-98); MEAN PLATELET VOLUME 7.7 FL (7.4-10.4); MONOCYTES # (AUTO) 0.9 X10'3 (0-0.9); MONOCYTES % (AUTO) 11.5 % (2-12); NEUTROPHILS # (AUTO) 4.4 X10'3 (1.8-7.7); NEUTROPHILS % (AUTO) 58.7 % (42-75); PLATELET COUNT 216 X10'3 (140-440); RED BLOOD COUNT 4.49 X10'6 (4.20-5.60); RED CELL DISTRIBUTION WIDTH 13.6 % (11.5-14.5); WHITE BLOOD COUNT 7.5 X10'3 (4.5-11.0)
[2025-02-23 03:24] LABS: OSMOLALITY 282 MOSM/K (280-300)
[2025-02-23 03:30] VITALS: BP 138/76; PULSE 87; RESP 14; TEMP 97.3; O2SAT 97
[2025-02-23 03:50] LABS: ALANINE AMINOTRANSFERASE 29 U/L (12-78); ALBUMIN/GLOBULIN RATIO 0.9 (1.1-1.5); ALKALINE PHOSPHATASE 58 IU/L (46-116); ANION GAP 9 (8-16); ASPARTATE AMINO TRANSFERASE 22 U/L (10-37); BILIRUBIN,TOTAL 0.3 MG/DL (0.1-1.0); BLOOD UREA NITROGEN 9 MG/DL (7-18); BUN/CREATININE RATIO 19.1 (10.0-20.0); CALCIUM 8.4 MG/DL (8.5-10.1); CHLORIDE 102 MMOL/L (99-107); CREATININE 0.47 MG/DL (0.40-0.90); GLUCOSE 106 MG/DL (70-104); MAGNESIUM 2.1 MG/DL (1.5-2.4); POTASSIUM 3.2 MMOL/L (3.5-5.1); SODIUM 136 MMOL/L (135-145); TOTAL CARBON DIOXIDE 25.5 MMOL/L (24-32); TOTAL PROTEIN 6.5 G/DL (6.4-8.2); eCRCL 86 ML/MIN; eGFR > 90 ML/MIN
[2025-02-23 04:20] VITALS: RESP 20; O2SAT 98
[2025-02-23 06:00] VITALS: BP 109/54; PULSE 77; RESP 19; TEMP 97.6; O2SAT 97
[2025-02-23] MEDS: pantoprazole 40mg Tablet.DR PO SCH (08:00)
[2025-02-23 08:48] LABS: PRO BRAIN NATRIURETIC PEPTIDE 3086 PG/ML (0-450)
[2025-02-23] MEDS: docusate sod 100mg capsule PO SCH (08:54)
[2025-02-23] MEDS: gabapentin 300mg capsule PO SCH (08:54)
[2025-02-23] MEDS: potassium Cl 20 mEq SR tablet PO PRN (08:54)
[2025-02-23] MEDS: ticagrelor 90mg tablet PO SCH (08:55)
[2025-02-23] MEDS: sotalol 80mg tablet PO SCH (08:56)
[2025-02-23] MEDS: aspirin 81mg tab.chew PO SCH (08:56)
[2025-02-23] MEDS: K and/or MAG REPLACEMENT MC SCH (08:57)
[2025-02-23 11:00] VITALS: BP 116/56; PULSE 80; RESP 14; TEMP 97; O2SAT 95
[2025-02-23] MEDS: potassium Cl 20 mEq SR tablet PO STA (12:05)
--- NOTE | 2025-02-23 15:34 | DISCHARGE SUMMARY-Residence ---
Discharge Summary Providers to CC Resident Creating Document: GRACE SMALLSCHUYITA LUIS, RES ~ Discharge Summary Admission Diagnosis: AFIB WITH RVR, Hospital Course DATE OF ADMISSION: 02/22/2025 DATE OF DISCHARGE: 02/23/2025 Discharge Diagnosis\Comment: Atrial fibrillation with RVR Coronary artery disease status post RCA stenting by Dr. Harley Shah Type 4b myocardial infarction Hyponatremia: Improved Chronic CHF with preserved ejection fraction Operations\Procedures: None Consultants: Chicken Dresser, Dr. Shah Complications: None Condition on DC: Stable Continued Medications: Aspirin (Aspirin) 81 Mg Tab.chew 1 TAB PO DAILY for 30 Days, #30 TAB Butalb/Acetaminophen/Caffeine (Wrntne-Dajnsmlp-Ezom 50-325-40) 1 Each Tablet 1 q4hrs prn Gabapentin (Gabapentin) 300 Mg Capsule 1 CAP PO BID, #90 CAP Montelukast Sodium (Montelukast Sodium) 10 Mg Tablet 1 TAB PO HS for 30 Days, #30 TAB [place]-3 Fatty Acids ([place]-3) 1,000 Mg Capsule 2 CAP PO HS for 30 Days, #90 CAP 0 Refills Pantoprazole Sodium (PROTONIX tablet) 40 Mg Tablet.dr 1 TAB PO DAILY for 30 Days, #30 TAB 0 Refills Rosuvastatin Calcium (Rosuvastatin Calcium) 20 Mg Tablet 2 DAILY Sotalol Hcl* (Betapace*) 80 Mg Tablet 0.5 TAB PO Q12H, TAB 0 Refills Sumatriptan Succinate (Sumatriptan Succinate) 50 Mg Tablet 1 TAB PO DAILY PRN for headache MRX1 IN 2 HR Ticagrelor (Brilinta) 90 Mg Tablet 90 MG PO BID for ACUTE CORONARY SYNDROME/NSTEMI, #60 TAB 12 Refills Do not stop medication unless instructed by prescriber. Must be on aspirin as well. Tiotropium Br/Olodaterol HCl (Stiolto Respimat Inhal [place]) 4 Gm Mist.inhal Discharge Summary: HPI: 79 years old female with past medical history of atrial fibrillation, status post Watchman, CHF hyperlipidemia, chronic bronchitis, recent NSTEMI underwent RCA stenting in 02/17/25 presented to the ED with complaint of shortness of breaths palpitation. Patient reported usually her heart rate is around 80 but today it was 115, she usually take sotalol 40 b.i.d. however after this episode she took 80 mg sotalol however she reported she did not feel good and the heart rate was about 105. She also reported heart racing and shortness of breaths called EMS and they transfer patient to the ED. she denied chest pain shortness of breaths lightheaded vision change or any neurological symptoms. On arrival the heart rate was 100 and gradually goes down to 80. She denied any fever chills cough abdominal pain or any other related symptoms. She also had history of dysphagia and weight loss and recently is following GI specialist. Hospital course: 79-year-old female patient was admitted with atrial fibrillation with RVR. The patient stated that last night she experienced some shortness of breaths on palpitations reason for which she decided to come to the emergency department. The patient was found with AFib with RVR with heart rate of 115. The patient was admitted, the patient took an extra dose of sotalol before coming by recommendation of Dr. Shah her heart rate came down to 86. Rhythm converted to sinus rhythm. The patient recovered sooner than expected. Chicken Dresser, Dr. Shah was consulted who recommends follow-up with him as an outpatient, continue same medication. The patient is eager to be discharged home. The patient will be discharged home. Discharge course: The patient remained hemodynamically stable. The patient will be discharged with the following instructions: Come back to the emergency department or call 911 if severe chest pain, shortness of breath, palpitations is evidenced. Continue your home medication. Follow-up with Dr. Shah in his office within two weeks. Follow-up with the primary care physician within two weeks. Physical exam: General: Well alert, well oriented, not confused, not agitated, not in acute distress, well cooperated during the physical. HEENT: Conjunctive are pink, sclerae clear, no icterus, pupil is equal in both sides, reactive to light, no ear discharge, no pharyngeal erythema or an edema. Neck: Supple, no JVD, no lymphadenopathy and thyromegaly. Chest: Equal air entry on both lungs, no additional sounds no rhonchi no wheezing at the moment. Cardiovascular: S1-S2 regular sinus rhythm and, regular rate, no gallops, no rubs, no murmurs Abdomen: No visible peristalsis, Bowel sounds present on auscultation, soft, nontender, no guarding, no rigidity Extremities: No obvious deformities, no pitting edema bilaterally, capillary refill intact, peripheral pulsations are intact on both sides Central Nervous System: No focal neurological deficits, no motor or sensory weakness in all 4 extremities, could move all 4 extremities, 2+ deep tendon reflexes, negative Babinski. Musculoskeletal: No joint swelling, deformities, inflammations, and no scoliosis and back tenderness Skin: Warm and dry. Vital Signs Date Time Temp Pulse Resp B/P (MAP) Pulse Ox O2 Delivery O2 Flow Rate FiO2 02/23/25 11:00 97.0 80 14 116/56 (76) 95 Room Air 02/23/25 08:00 0.0 21 Laboratory Tests Test 02/22/25 18:14 02/22/25 20:23 02/22/25 21:19 02/23/25 03:05 White Blood Count 9.3 X10'3 7.5 X10'3 Red Blood Count 4.61 X10'6 4.49 X10'6 Hemoglobin 14.7 g/dl 14.0 g/dl Hematocrit 42.3 % 41.3 % Mean Corpuscular Volume 91.7 FL 91.9 FL Mean Corpuscular Hemoglobin 31.8 PG 31.1 PG Mean Corpuscular Hemoglobin Concent 34.7 g/dL 33.8 g/dL Red Cell Distribution Width 13.6 % 13.6 % Platelet Count 244 X10'3 216 X10'3 Mean Platelet Volume 8.0 FL 7.7 FL Neutrophils (%) (Auto) 62.4 % 58.7 % Lymphocytes (%) (Auto) 24.0 % 26.5 % Monocytes (%) (Auto) 10.1 % 11.5 % Eosinophils (%) (Auto) 2.9 % 2.4 % Basophils (%) (Auto) 0.6 % 0.9 % Neutrophils # (Auto) 5.8 X10'3 4.4 X10'3 Lymphocytes # (Auto) 2.2 X10'3 2.0 X10'3 Monocytes # (Auto) 0.9 X10'3 0.9 X10'3 Eosinophils # (Auto) 0.3 X10'3 0.2 X10'3 Basophils # (Auto) 0.1 X10'3 0.1 X10'3 CBC Comment Sodium Level 129 MMOL/L 136 MMOL/L Potassium Level 3.5 MMOL/L 3.2 MMOL/L Chloride Level 97 MMOL/L 102 MMOL/L Carbon Dioxide Level 20.5 MMOL/L 25.5 MMOL/L Anion Gap 12 9 Blood Urea Nitrogen 7 MG/DL 9 MG/DL Creatinine 0.45 MG/DL 0.47 MG/DL Estimated GFR/1.73 m2 > 90 ML/MIN > 90 ML/MIN BUN/Creatinine Ratio 15.6 19.1 Glucose Level 106 MG/DL 106 MG/DL Calcium Level 8.7 MG/DL 8.4 MG/DL Troponin I High Sensitivity 243 ng/L 224 ng/L 233 ng/L Pro-B-Type Natriuretic Peptide 3517 PG/ML 3086 PG/ML Albumin 3.3 G/DL 3.0 G/DL Chemistry Comments Troponin I High Sens Percent Delta 7 % 4 % Troponin I Hi Sens Absolute Change -19 ng/L 9 ng/L Magnesium Level 2.0 MG/DL 2.1 MG/DL Osmolality 282 MOSM/K Total Bilirubin 0.3 MG/DL Aspartate Amino Transf (AST/SGOT) 22 U/L Alanine Aminotransferase (ALT/SGPT) 29 U/L Alkaline Phosphatase 58 IU/L Total Protein 6.5 G/DL Globulin 3.5 G/DL Albumin/Globulin Ratio 0.9 Test 02/23/25 03:19 02/23/25 12:05 Urine Osmolality < 100 MOSM/K Potassium Level 3.9 MMOL/L *Problems/Diagnosis: (1) Atrial fibrillation with RVR Status: Acute Total Time Spent on D/C: > 30 Minutes Date of Service: Feb 23, 2025 Billing Provider: JAY ARTEAGA MD Common Visit Codes: 50198-HRK/OBS DISCH DAY >30min CHUYITA GUNDERSON, RES Feb 23, 2025 15:32 JAY ARTEAGA MD Feb 23, 2025 20:54
[2025-02-23] MEDS ORDERED: enoxaparin 40mg/0.4ml syringe SQ SCH (20:00)
[2025-02-23] MEDS ORDERED: montelukast 10mg tablet PO SCH (21:00)
== END 2025-02-23 13:53 | disposition home or self-care (01) ==
LOC: ER 17:55 → ED HOLD 21:58 → UNDOADMIN 21:58 → INTOOBSV 23:02 → ED HOLD 23:02 → PCU 3S 02-23 01:10 → ED HOLD 02-23 01:10
PROVIDERS: ADMIT Internal Medicine Critical Care Medicine; ATTEND Internal Medicine
DX: I48.20 Chronic atrial fibrillation, unspecified (principal); I25.10 Atherosclerotic heart disease of native coronary artery without angina pectoris; E87.1 Hypo-osmolality and hyponatremia; R00.2 Palpitations; R79.89 Other specified abnormal findings of blood chemistry; I25.2 Old myocardial infarction; E78.00 Pure hypercholesterolemia, unspecified; G47.30 Sleep apnea, unspecified; I11.0 Hypertensive heart disease with heart failure; I50.9 Heart failure, unspecified; J44.9 Chronic obstructive pulmonary disease, unspecified; Z88.2 Allergy status to sulfonamides; Z90.49 Acquired absence of other specified parts of digestive tract; Z90.710 Acquired absence of both cervix and uterus; Z88.6 Allergy status to analgesic agent; Z79.899 Other long term (current) drug therapy
CPT/HCPCS: 80048; 80053; 83735; 83880; 83930; 83935; 84132; 84484; 93005; 99285; G0378; 36415; 71045; 85025; 87081